=== PATIENT | male | born 1940 | race Caucasian/White ===

== ENCOUNTER 2017-08-17 11:29 | Inpatient (IN) | payer OTHER, MEDICARE ==
[~2017-08-17] VITALS: Ht 177.8 cm; Wt 62.6 kg
[~2017-08-17 11:29] MED LIST: ALBU8.5H8 IH; DILT180C95 PO; NEPHC PO; PRED10TA PO; SIMV20TA PO
[2017-08-17 12:15] LABS: BASOPHILS % (AUTO) 0.5 % (0-1); EOSINOPHILS # (AUTO) 2.1 X10'3 (0-0.9); HEMATOCRIT 33.3 % (42.0-52.0); HEMOGLOBIN 11.3 g/dl (14.0-17.9); LYMPHOCYTES % (AUTO) 11.2 % (21-51); MEAN CORPUSCULAR HEMOGLOBIN 32.8 PG (27.0-31.0); MEAN CORPUSCULAR HGB CONC 33.9 % (33.0-36.5); MEAN CORPUSCULAR VOLUME 96.7 FL (78-98); MEAN PLATELET VOLUME 8.3 FL (7.4-10.4); MONOCYTES # (AUTO) 0.9 X10'3 (0-0.9); MONOCYTES % (AUTO) 9.7 % (2-12); NEUTROPHILS % (AUTO) 55.6 % (42-75); PLATELET COUNT 329 X10'3 (140-440); RED BLOOD COUNT 3.44 X10'6 (4.70-6.10); RED CELL DISTRIBUTION WIDTH 17.5 % (11.5-14.5)
[2017-08-17 12:26] LABS: INR 1.1 INR; PARTIAL THROMBOPLASTIN TIME 29 SECONDS (22-32); PROTHROMBIN TIME 11.4 SECONDS (9.0-12.0)
[2017-08-17 12:31] LABS: ALANINE AMINOTRANSFERASE 24 U/L (12-78); ALBUMIN 2.6 G/DL (3.4-5.0); ALBUMIN/GLOBULIN RATIO 0.5 (1.1-1.5); ALKALINE PHOSPHATASE 120 IU/L (46-116); ANION GAP 8 (8-16); ASPARTATE AMINO TRANSFERASE 23 U/L (10-37); BILIRUBIN,TOTAL 0.5 MG/DL (0.1-1.0); BLOOD UREA NITROGEN 34 MG/DL (7-18); BUN/CREATININE RATIO 9.7 (5.4-32.0); CHLORIDE 98 MMOL/L (99-107); GLUCOSE 132 MG/DL (70-104); POTASSIUM 3.9 MMOL/L (3.5-5.1); SODIUM 138 MMOL/L (135-145); TOTAL CARBON DIOXIDE 31.6 MMOL/L (24-32); TOTAL PROTEIN 7.7 G/DL (6.4-8.2); eGFR 17 ML/MIN
[2017-08-17 14:41] VITALS: BP 120/93
[2017-08-17 14:48] VITALS: BP 149/56
[2017-08-17] MEDS ORDERED: diltiazem 5mg/ml 5ml inj. IV ONE ×2 (15:05→15:40)
[2017-08-17] MEDS ORDERED: ondansetron/PF 4mg/2ml inj IV PRN (15:50)
[2017-08-17] MEDS ORDERED: amiodarone 150mg/dext, iso-os 100 ML IV ONE (15:50)
[2017-08-17] MEDS ORDERED: acetaminophen 325mg tablet PO PRN (15:50)
[2017-08-17] MEDS: diltiazem CD 180mg cap (once-daily) PO SCH (17:11)
[2017-08-17] MEDS: amiodarone/D5 360MG/200ML BAG 200 ML IV SCH (17:36)
[2017-08-17] MEDS: atorvastatin 10mg tablet PO SCH (20:47)
[2017-08-17] MEDS: heparin, porcine 5000 units/ml vial SQ SCH (20:47)
[2017-08-17] MEDS: docusate sod 100mg capsule PO SCH (20:47)
[2017-08-17] MEDS: albuterol 2.5 MG/3 ML nebule NEB PRN (21:40)
[2017-08-17] MEDS: HYDROcodone/acetaminophen 5mg/325mg tablet PO PRN (23:59)
[2017-08-18 04:55] LABS: BASOPHILS % (AUTO) 0.5 % (0-1); EOSINOPHILS # (AUTO) 2.5 X10'3 (0-0.9); EOSINOPHILS % (AUTO) 25.9 % (0-6); HEMATOCRIT 32.4 % (42.0-52.0); HEMOGLOBIN 10.9 g/dl (14.0-17.9); LYMPHOCYTES # (AUTO) 1.6 X10'3 (1.1-4.8); LYMPHOCYTES % (AUTO) 16.3 % (21-51); MEAN CORPUSCULAR HGB CONC 33.5 % (33.0-36.5); MEAN CORPUSCULAR VOLUME 98.4 FL (78-98); MEAN PLATELET VOLUME 8.2 FL (7.4-10.4); MONOCYTES # (AUTO) 0.9 X10'3 (0-0.9); MONOCYTES % (AUTO) 8.9 % (2-12); NEUTROPHILS # (AUTO) 4.6 X10'3 (1.8-7.7); NEUTROPHILS % (AUTO) 48.4 % (42-75); PLATELET COUNT 343 X10'3 (140-440); RED CELL DISTRIBUTION WIDTH 17.6 % (11.5-14.5); WHITE BLOOD COUNT 9.6 X10'3 (4.5-11.0)
[2017-08-18 05:09] LABS: ALANINE AMINOTRANSFERASE 28 U/L (12-78); ALBUMIN 2.5 G/DL (3.4-5.0); ALBUMIN/GLOBULIN RATIO 0.5 (1.1-1.5); ALKALINE PHOSPHATASE 115 IU/L (46-116); ANION GAP 6 (8-16); ASPARTATE AMINO TRANSFERASE 25 U/L (10-37); BILIRUBIN,TOTAL 0.4 MG/DL (0.1-1.0); BLOOD UREA NITROGEN 44 MG/DL (7-18); BUN/CREATININE RATIO 9.2 (5.4-32.0); CALCIUM 8.9 MG/DL (8.5-10.1); CHLORIDE 97 MMOL/L (99-107); CREATININE 4.77 MG/DL (0.60-1.10); GLUCOSE 111 MG/DL (70-104); MAGNESIUM 1.6 MG/DL (1.5-2.4); PHOSPHORUS 2.9 MG/DL (2.3-4.5); POTASSIUM 4.5 MMOL/L (3.5-5.1); SODIUM 135 MMOL/L (135-145); TOTAL CARBON DIOXIDE 32.1 MMOL/L (24-32); TOTAL PROTEIN 7.1 G/DL (6.4-8.2); eGFR 12 ML/MIN
[2017-08-18] MEDS: amiodarone/D5 360MG/200ML BAG 200 ML IV SCH (07:34)
[2017-08-18] MEDS ORDERED: LIDOcaine 1% (10mg/ml) 2ml vial SQ ONE (08:00)
[2017-08-18] MEDS: folic acid/vitamin B complex w/vitamin C 0.8mg tablet PO SCH (08:00)
[2017-08-18] MEDS: heparin, porcine 5000 units/ml vial SQ SCH ×2 (08:00→20:13)
[2017-08-18] MEDS ORDERED: normal saline 1000ml 250 ML IV PRN (08:00)
[2017-08-18] MEDS ORDERED: heparin 1,000 units/ml 10ml inj IV ONE (08:00)
[2017-08-18] MEDS ORDERED: FOLI1CAP7 (10:21)
[2017-08-18] MEDS ORDERED: LISI-600 (10:21)
[2017-08-18] MEDS ORDERED: OMEP-50 (10:21)
[2017-08-18] MEDS ORDERED: HYDR-3965 (10:21)
[2017-08-18] MEDS ORDERED: ATOR40TA72 (10:21)
[2017-08-18] MEDS: docusate sod 100mg capsule PO SCH ×2 (12:04→20:13)
[2017-08-18] MEDS: diltiazem CD 180mg cap (once-daily) PO SCH (12:05)
[2017-08-18 13:30] VITALS: BP 105/88
[2017-08-18] MEDS ORDERED: LIDOcaine 1% (10mg/ml) 2ml vial ONE (14:37)
[2017-08-18 15:00] VITALS: BP 106/54
[2017-08-18] MEDS ORDERED: diphenhydrAMINE 50 mg/ml inj ONE (15:19)
[2017-08-18] MEDS ORDERED: diphenhydrAMINE 50 mg/ml inj IV ONE (15:25)
[2017-08-18 17:00] VITALS: BP 119/63
[2017-08-18 19:00] VITALS: BP 119/63
[2017-08-18] MEDS: atorvastatin 10mg tablet PO SCH (20:13)
[2017-08-18] MEDS: albuterol 2.5 MG/3 ML nebule NEB PRN (21:15)
[2017-08-18 23:00] VITALS: BP 128/66
[2017-08-18] MEDS ORDERED: LORazepam 2 mg/ml vial IV ONE (23:10)
[2017-08-18] MEDS ORDERED: LORazepam 2 mg/ml vial IV STA (23:12)
[2017-08-19 03:00] VITALS: BP 137/76
[2017-08-19] MEDS ORDERED: LORazepam 2 mg/ml vial IV ONE (03:00)
[2017-08-19 05:19] LABS: BASOPHILS # (AUTO) 0.1 X10'3 (0-0.2); BASOPHILS % (AUTO) 0.6 % (0-1); EOSINOPHILS # (AUTO) 2.4 X10'3 (0-0.9); EOSINOPHILS % (AUTO) 24.2 % (0-6); HEMATOCRIT 29.8 % (42.0-52.0); HEMOGLOBIN 9.9 g/dl (14.0-17.9); LYMPHOCYTES # (AUTO) 1.3 X10'3 (1.1-4.8); LYMPHOCYTES % (AUTO) 12.5 % (21-51); MEAN CORPUSCULAR HEMOGLOBIN 32.6 PG (27.0-31.0); MEAN CORPUSCULAR HGB CONC 33.2 % (33.0-36.5); MEAN CORPUSCULAR VOLUME 98.1 FL (78-98); MEAN PLATELET VOLUME 8.7 FL (7.4-10.4); MONOCYTES # (AUTO) 0.8 X10'3 (0-0.9); MONOCYTES % (AUTO) 8.4 % (2-12); NEUTROPHILS # (AUTO) 5.4 X10'3 (1.8-7.7); NEUTROPHILS % (AUTO) 54.3 % (42-75); PLATELET COUNT 310 X10'3 (140-440); RED BLOOD COUNT 3.04 X10'6 (4.70-6.10); RED CELL DISTRIBUTION WIDTH 17.6 % (11.5-14.5)
[2017-08-19 06:00] VITALS: BP 129/65
[2017-08-19 06:11] LABS: ALANINE AMINOTRANSFERASE 21 U/L (12-78); ALBUMIN 2.4 G/DL (3.4-5.0); ALBUMIN/GLOBULIN RATIO 0.5 (1.1-1.5); ALKALINE PHOSPHATASE 109 IU/L (46-116); ANION GAP 9 (8-16); ASPARTATE AMINO TRANSFERASE 23 U/L (10-37); BILIRUBIN,TOTAL 0.4 MG/DL (0.1-1.0); BLOOD UREA NITROGEN 37 MG/DL (7-18); BUN/CREATININE RATIO 7.6 (5.4-32.0); CHLORIDE 98 MMOL/L (99-107); CREATININE 4.88 MG/DL (0.60-1.10); GLUCOSE 101 MG/DL (70-104); MAGNESIUM 1.6 MG/DL (1.5-2.4); PHOSPHORUS 3.1 MG/DL (2.3-4.5); POTASSIUM 4.4 MMOL/L (3.5-5.1); SODIUM 139 MMOL/L (135-145); TOTAL CARBON DIOXIDE 32.1 MMOL/L (24-32); TOTAL PROTEIN 7.1 G/DL (6.4-8.2); eGFR 12 ML/MIN
[2017-08-19] MEDS ORDERED: epoetin 20,000 units/ml inj IV ONE (08:00)
[2017-08-19] MEDS ORDERED: normal saline 1000ml 250 ML IV PRN (08:00)
[2017-08-19] MEDS ORDERED: heparin 1,000 units/ml 10ml inj IV ONE (08:00)
[2017-08-19] MEDS ORDERED: LIDOcaine 1% (10mg/ml) 2ml vial SQ ONE (08:00)
[2017-08-19] MEDS: heparin, porcine 5000 units/ml vial SQ SCH ×2 (08:38→21:17)
[2017-08-19] MEDS: diltiazem CD 180mg cap (once-daily) PO SCH (08:38)
[2017-08-19] MEDS: folic acid/vitamin B complex w/vitamin C 0.8mg tablet PO SCH (08:38)
[2017-08-19] MEDS: docusate sod 100mg capsule PO SCH ×2 (08:38→21:16)
[2017-08-19 11:00] VITALS: BP 123/70
[2017-08-19 15:00] VITALS: BP 113/72
[2017-08-19 19:00] VITALS: BP 136/68
[2017-08-19] MEDS: atorvastatin 10mg tablet PO SCH (21:16)
[2017-08-19] MEDS: albuterol 2.5 MG/3 ML nebule NEB PRN (22:10)
[2017-08-19 23:00] VITALS: BP 137/68
[2017-08-20] MEDS: HYDROcodone/acetaminophen 5mg/325mg tablet PO PRN (00:27)
[2017-08-20 03:00] VITALS: BP 144/69
[2017-08-20 05:29] LABS: BASOPHILS % (AUTO) 0.5 % (0-1); HEMATOCRIT 31.6 % (42.0-52.0); HEMOGLOBIN 10.5 g/dl (14.0-17.9); LYMPHOCYTES # (AUTO) 1.3 X10'3 (1.1-4.8); LYMPHOCYTES % (AUTO) 15.1 % (21-51); MEAN CORPUSCULAR HEMOGLOBIN 32.5 PG (27.0-31.0); MEAN CORPUSCULAR HGB CONC 33.2 % (33.0-36.5); MEAN CORPUSCULAR VOLUME 97.9 FL (78-98); MEAN PLATELET VOLUME 8.3 FL (7.4-10.4); MONOCYTES # (AUTO) 0.8 X10'3 (0-0.9); NEUTROPHILS # (AUTO) 4.5 X10'3 (1.8-7.7); NEUTROPHILS % (AUTO) 52.4 % (42-75); PLATELET COUNT 294 X10'3 (140-440); RED BLOOD COUNT 3.23 X10'6 (4.70-6.10); RED CELL DISTRIBUTION WIDTH 17.6 % (11.5-14.5); WHITE BLOOD COUNT 8.6 X10'3 (4.5-11.0)
[2017-08-20 06:00] VITALS: BP 136/78
[2017-08-20 06:03] LABS: ALANINE AMINOTRANSFERASE 26 U/L (12-78); ALBUMIN 2.2 G/DL (3.4-5.0); ALBUMIN/GLOBULIN RATIO 0.5 (1.1-1.5); ALKALINE PHOSPHATASE 108 IU/L (46-116); ANION GAP 8 (8-16); ASPARTATE AMINO TRANSFERASE 21 U/L (10-37); BILIRUBIN,TOTAL 0.4 MG/DL (0.1-1.0); BLOOD UREA NITROGEN 20 MG/DL (7-18); CALCIUM 8.3 MG/DL (8.5-10.1); CHLORIDE 97 MMOL/L (99-107); CREATININE 3.36 MG/DL (0.60-1.10); GLUCOSE 119 MG/DL (70-104); MAGNESIUM 1.5 MG/DL (1.5-2.4); PHOSPHORUS 2.6 MG/DL (2.3-4.5); SODIUM 136 MMOL/L (135-145); TOTAL CARBON DIOXIDE 31.5 MMOL/L (24-32); TOTAL PROTEIN 6.6 G/DL (6.4-8.2); eGFR 18 ML/MIN
[2017-08-20] MEDS: diltiazem CD 180mg cap (once-daily) PO SCH (07:37)
[2017-08-20] MEDS: docusate sod 100mg capsule PO SCH (07:38)
[2017-08-20] MEDS: heparin, porcine 5000 units/ml vial SQ SCH (07:39)
[2017-08-20] MEDS: folic acid/vitamin B complex w/vitamin C 0.8mg tablet PO SCH (07:40)
[2017-08-20 11:00] VITALS: BP 127/59
== END 2017-08-20 17:11 | disposition home or self-care (01) | DRG 291 ==
LOC: ER 11:29 → ED HOLD 15:46 → EDBEDREQ 08-18 12:01 → PCU 3S 08-18 13:10
PROVIDERS: ADMIT Internal Medicine Critical Care Medicine; ATTEND Internal Medicine Critical Care Medicine
PROC: 0W993ZZ Drainage of Right Pleural Cavity, Percutaneous Approach (ICD-10-PCS; 2017-08-17)
PROC: 5A1D70Z Performance of Urinary Filtration, Intermittent, Less than 6 Hours Per Day (ICD-10-PCS; 2017-08-18)
PROC: 5A09357 Assistance with Respiratory Ventilation, Less than 24 Consecutive Hours, Continuous Positive Airway Pressure (ICD-10-PCS; 2017-08-18)
PROC: 5A1D70Z Performance of Urinary Filtration, Intermittent, Less than 6 Hours Per Day (ICD-10-PCS; principal; 2017-08-19)
DX: I13.2 Hypertensive heart and chronic kidney disease with heart failure and with stage 5 chronic kidney disease, or end stage renal disease (principal); N18.6 End stage renal disease; J90 Pleural effusion, not elsewhere classified; R06.03 Acute respiratory distress; I48.92 Unspecified atrial flutter; I48.91 Unspecified atrial fibrillation; J44.9 Chronic obstructive pulmonary disease, unspecified; I50.9 Heart failure, unspecified; R00.0 Tachycardia, unspecified; F17.210 Nicotine dependence, cigarettes, uncomplicated; Z99.2 Dependence on renal dialysis; Z79.899 Other long term (current) drug therapy
CPT/HCPCS: 32555; 36415; 71045; 71250; 80053; 82948; 83735; 84100; 84484; 85025; 85610; 85730; 87070; 93005; 93306; 94640; 94660; 94760; 96374; 99285; A6402; A6449; G0257; J0282; J0885; J1200; J1644; J2060; J3490; J7030